=== PATIENT | male | born 1995 | race Caucasian/White ===

== ENCOUNTER 2017-03-06 20:25 | Emergency (ER) | payer OTHER ==
[~2017-03-06] VITALS: Ht 165.1 cm; Wt 59.0 kg
[~2017-03-06 20:25] MED LIST: AMOX1TAB12 PO; LAMICTAL200 M1
[2017-03-06] MEDS ORDERED: SEROQUEL25 MG (20:46)
[2017-03-06] MEDS ORDERED: MODAFINIL200 MG (20:47)
[2017-03-07] MEDS ORDERED: KETO10TA2 PO (01:04)
== END 2017-03-07 01:05 ==
LOC: ER 20:25
DX: S62.396A Other fracture of fifth metacarpal bone, right hand, initial encounter for closed fracture (principal); W06.XXXA Fall from bed, initial encounter; Y93.84 Activity, sleeping; Y92.89 Other specified places as the place of occurrence of the external cause; Y99.8 Other external cause status

== ENCOUNTER 2017-03-07 12:57 | Outpatient (CLI) | payer OTHER | END 2017-03-07 13:10 | disposition home or self-care (01) | LOC: RAD 12:57 | DX: Z76.89 Persons encountering health services in other specified circumstances (principal); S62.316A Displaced fracture of base of fifth metacarpal bone, right hand, initial encounter for closed fracture ==

== ENCOUNTER → 2017-03-07 15:23 | Outpatient (CLI) | payer OTHER | END | disposition home or self-care (01) | LOC: LAB 15:23 | DX: D64.89 Other specified anemias (principal); D68.8 Other specified coagulation defects; N39.0 Urinary tract infection, site not specified; E88.89 Other specified metabolic disorders ==

== ENCOUNTER → 2017-03-07 | Outpatient (CLI) | payer OTHER ==
[~2017-03-07] MED LIST changes: +KETO10TA2 PO; +MODAFINIL200 MG; +SEROQUEL25 MG
== END | disposition home or self-care (01) ==
LOC: EKG 15:26
DX: I49.8 Other specified cardiac arrhythmias (principal)

== ENCOUNTER 2017-03-11 08:17 | Day surgery (SDC) | payer OTHER | END 2017-03-11 16:40 | disposition home or self-care (01) | LOC: CIR.AMB 08:17 | DX: S62.316A Displaced fracture of base of fifth metacarpal bone, right hand, initial encounter for closed fracture (principal) ==

== ENCOUNTER 2017-04-23 15:46 | Outpatient (CLI) | payer OTHER | END 2017-04-23 15:57 | disposition home or self-care (01) | LOC: RAD 501 15:46 | DX: S62.316D Displaced fracture of base of fifth metacarpal bone, right hand, subsequent encounter for fracture with routine healing (principal) ==

== ENCOUNTER 2019-09-22 14:52 | Outpatient (CLI) | payer OTHER | END 2019-09-22 14:56 | disposition home or self-care (01) | LOC: LAB 14:52 | PROVIDERS: ATTEND Dentist Oral and Maxillofacial Surgery | DX: Z20.828 Contact with and (suspected) exposure to other viral communicable diseases (principal); Z20.89 Contact with and (suspected) exposure to other communicable diseases ==

== ENCOUNTER 2020-09-13 20:42 | Emergency (ER) | payer OTHER ==
[~2020-09-13] VITALS: Ht 162.6 cm; Wt 70.3 kg
[2020-09-13] MEDS ORDERED: LAMOTRIGINE (O1 EACH PO (20:50)
== END 2020-09-13 22:05 | disposition home or self-care (01) ==
LOC: ER 20:42
DX: S61.412A Laceration without foreign body of left hand, initial encounter (principal)

== ENCOUNTER 2020-09-24 14:54 | Emergency (ER) | payer OTHER ==
[~2020-09-24] VITALS: Ht 167.6 cm; Wt 68.0 kg
[~2020-09-24 14:54] MED LIST changes: +LAMOTRIGINE (O1 EACH PO
== END 2020-09-24 16:39 | disposition home or self-care (01) ==
LOC: ER 14:54
DX: Z48.02 Encounter for removal of sutures (principal)